=== PATIENT | female | born 1985 | race African-American/Black ===

== ENCOUNTER → 2020-03-27 | Emergency (ER) | payer SELFPAY ==
[~2020-03-27] VITALS: Ht 160 cm; Wt 108.9 kg
[2020-03-27 22:10] VITALS: BP 115/69
== END | disposition left against medical advice (07) ==
LOC: ER 22:06
DX: F41.9 Anxiety disorder, unspecified (principal); Z53.21 Procedure and treatment not carried out due to patient leaving prior to being seen by health care provider
CPT/HCPCS: 93005

== ENCOUNTER 2021-06-16 02:36 | Emergency (ER) | payer MEDICAID ==
[~2021-06-16] VITALS: Ht 160 cm; Wt 102.1 kg
[2021-06-16 07:38] VITALS: BP 134/71
== END 2021-06-16 07:49 | disposition home or self-care (01) ==
LOC: ER 02:36
DX: G43.909 Migraine, unspecified, not intractable, without status migrainosus (principal); Z76.0 Encounter for issue of repeat prescription; Z88.6 Allergy status to analgesic agent

== ENCOUNTER 2022-09-08 19:01 | Emergency (ER) | payer MEDICAID | END 2022-09-08 22:24 | disposition left against medical advice (07) | LOC: ER 19:03 | DX: K04.7 Periapical abscess without sinus (principal); Z53.21 Procedure and treatment not carried out due to patient leaving prior to being seen by health care provider ==